=== PATIENT | female | born 1925 | race Caucasian/White ===

== ENCOUNTER 2016-11-23 10:25 | Emergency (ER) | payer MEDICARE, BC ==
--- NOTE | 2016-11-23 12:32 | UC ---
Skin Complaint HPI - HPI Summary HPI Summary: had a skin scraping last week at Dr. Belle office---Increase pain swelling redness and tenderness in LLE with a wound that has purulent drainage. Patient states it is very tender as well is tender above erythema--- also concerned about urinary urgency and she has chronic UTI'S - History of Current Complaint Chief Complaint: UCSkin Time Seen by Provider: 11/23/16 12:17 Stated Complaint: SKIN COMPLAINT Hx Obtained From: Patient ?: No Onset/Duration: Sudden Onset, Lasting Days - 7, Worse Since - pst 3 days Skin Exposure Onset/Duration: Weeks Ago - 1 Timing: Constant Onset Severity: Mild Current Severity: Moderate Pain Intensity: 6 Pain Scale Used: 0-10 Numeric Character: Swelling, Pain, Redness Aggravating: Touch Alleviating: Nothing Associated Signs & Symptoms: Positive: Drainage, Tenderness Related History: Trauma - skin scraping for cancer - Allergy/Home Medications Allergies/Adverse Reactions: Allergies Allergy/AdvReac Type Severity Reaction Status Date / Time Penicillins Allergy Unknown Verified 11/23/16 12:02 Reaction Details Home Medications: Home Medications Metoprolol Tartrate TAB* [Lopressor TAB*] 25 mg PO DAILY 11/23/16 [History Confirmed 11/23/16] Review of Systems Constitutional: Negative Skin: Other - 7 x 6 cm tender erythema around lower left leg with a 1.5 cm diameter center ulceration with purulent drainage Eyes: Negative ENT: Negative Respiratory: Negative Cardiovascular: Negative Gastrointestinal: Negative Genitourinary: Urgency Motor: Negative Neurovascular: Negative Musculoskeletal: Myalgia - lower left leg Neurological: Negative Psychological: Negative All Other Systems Reviewed And Are Negative: Yes PMH/Surg Hx/FS Hx/Imm Hx Previously Healthy: No Endocrine History Of: Reports: Thyroid Disease - hypo Denies: Diabetes Cardiovascular History Of: Reports: Cardiac Disorders - aortic valve calcification, Hypertension - Surgical History Surgical History: Yes Surgery Procedure, Year, and Place: t&a, appy, partial hysterectomy, bladder lift, heart cath - Family History Known Family History: Positive: None Family History: no reported cardio vascular issues in family lineage - Social History Occupation: Retired Lives: Alone Alcohol Use: None Substance Use Type: None Smoking Status (MU): Never Smoked Tobacco Physical Exam Triage Information Reviewed: Yes Appearance: Well-Appearing, Well-Nourished, Pain Distress - mild Vital Signs: Initial Vital Signs Temp 98.3 F 11/23/16 11:54 Pulse 65 11/23/16 11:54 Resp 16 11/23/16 11:54 BP 109/60 11/23/16 11:54 Pulse Ox 100 11/23/16 11:54 Vital Signs Reviewed: Yes Eye Exam: Normal Eyes: Positive: Conjunctiva Clear ENT Exam: Normal ENT: Positive: Normal ENT inspection, Hearing grossly normal. Negative: Nasal congestion, Nasal drainage, Trismus, Muffled/hoarse voice Dental Exam: Normal Neck exam: Normal Neck: Positive: Supple, Nontender Respiratory Exam: Normal Respiratory: Positive: Chest non-tender, No respiratory distress, No accessory muscle use Cardiovascular Exam: Normal Cardiovascular: Positive: RRR, Pulses Normal, Brisk Capillary Refill Abdominal Exam: Normal Abdomen Description: Positive: Nontender, No Organomegaly, Soft Bowel Sounds: Positive: Present Musculoskeletal Exam: Normal Musculoskeletal: Positive: Strength Intact, ROM Intact, Edema @ - left lower leg Neurological Exam: Normal Neurological: Positive: Alert, Muscle Tone Normal Psychological Exam: Normal Skin: Positive: Other - cellulitis ulceration as described Diagnostics - Laboratory Diagnostic Studies Completed/Ordered: us (-) Re-Evaluation - Re-Evaluation First Eval Change: Improved - Mepilex Dressing applied Course/Dx - Course Course Of Treatment: elevate legs, warm compress, bactrim bid for 10 days--- follow with Dr. Leon or return here in 3 days for dressing change-to emergency department should symptoms worsen - Differential Diagnoses - Skin Complaint Differential Diagnoses: Cellulitis, Impetigo, Local Allergic Reaction - Diagnoses Provider Diagnoses: Cellulitis with skin ulceration left lower leg Discharge - Discharge Plan Condition: Stable Disposition: HOME Prescriptions: Sulfamethox/Trimethoprim SUSP* [Bactrim Susp*] 20 ml PO BID #400 ml Patient Education Materials: Cellulitis (ED), Heat Pack Application (ED) Referrals: Hina Leon [Medical Doctor] - 3 Days Michelle Valverde PA [Primary Care Provider] -
[2016-11-23] MEDS ORDERED: Sulfamethox/Trimethoprim SUSP* 20 ML UDC PO ONE (12:39)
[2016-11-23 13:55] VITALS: BP 125/62
--- NOTE | 2016-11-23 14:42 | RAD ---
INDICATION: LEFT lower extremity draining wound post skin excisional biopsy. Assess for DVT. COMPARISON: No relevant prior exams available on the [facility] for comparison. TECHNIQUE: Sarmiento scale, color Doppler, and spectral analysis of the deep veins of the LEFT lower extremity. Vessel compression, phasicity, and augmentation assessed. REPORT: The LEFT common femoral, great saphenous, profunda femoral, femoral, popliteal, poorly visualized peroneal, and posterior tibial veins are grossly patent. Patency of the RIGHT common femoral vein documented. IMPRESSION: No evidence for LEFT lower extremity deep venous thrombosis.
== END 2016-11-23 14:52 | disposition home or self-care (01) ==
LOC: UCCORT 10:25
DX: L03.116 Cellulitis of left lower limb (principal); L97.929 Non-pressure chronic ulcer of unspecified part of left lower leg with unspecified severity; R60.0 Localized edema; R39.15 Urgency of urination; Z87.440 Personal history of urinary (tract) infections; E03.9 Hypothyroidism, unspecified; I35.8 Other nonrheumatic aortic valve disorders; I10 Essential (primary) hypertension; Z90.711 Acquired absence of uterus with remaining cervical stump; Z88.0 Allergy status to penicillin
CPT/HCPCS: 81003; 87070; 87077; 87086; 87186; 87205; 87640; 87641; 99202; A9270-GY; G0463

== ENCOUNTER 2016-11-26 12:14 | Emergency (ER) | payer MEDICARE, BC ==
[2016-11-26 12:31] VITALS: BP 111/52
--- NOTE | 2016-11-26 13:16 | UC ---
Lower Extremity/Ankle HPI - HPI Summary HPI Summary: left lower leg wound x 2 weeks had scraping done by the political scientist 2 weeks ago, the area became infected , pt. was seen at the [facility] on 11/23/16 , was placed on Bactrim ds, wound culture + for MRSA , pt. came for recheck of the wound today , no improvement of the wound, cont. to have redness, swelling, very tender no fever, no chills - History of Current Complaint Chief Complaint: UCSkin Stated Complaint: RE CK LEG WOUND Time Seen by Provider: 11/26/16 12:19 Hx Obtained From: Patient Onset/Duration: Gradual Onset, Lasting Weeks - 2, Still Present, Worse Since - past one week Severity Initially: Moderate Severity Currently: Severe Aggravating Factor(s): Standing, Ambulation Alleviating Factor(s): Nothing Able to Bear Weight: Yes - Allergies/Home Medications Allergies/Adverse Reactions: Allergies Allergy/AdvReac Type Severity Reaction Status Date / Time Peanut Oil Allergy Unknown Verified 11/26/16 12:22 Reaction Details Penicillins Allergy Unknown Verified 11/26/16 12:22 Reaction Details PMH/Surg Hx/FS Hx/Imm Hx Endocrine History Of: Reports: Thyroid Disease Denies: Diabetes Cardiovascular History Of: Reports: Cardiac Disorders - irregular heartbeat Denies: Hypertension - Surgical History Surgical History: Yes Surgery Procedure, Year, and Place: t&a, appy, partial hysterectomy, bladder lift, heart cath - Family History Known Family History: Positive: None Negative: Diabetes Family History: no reported cardio vascular issues in family lineage - Social History Alcohol Use: None Substance Use Type: None Smoking Status (MU): Never Smoked Tobacco Review of Systems Constitutional: Negative Skin: Other - wound left lower leg Eyes: Negative ENT: Negative Respiratory: Negative Cardiovascular: Negative All Other Systems Reviewed And Are Negative: Yes Physical Exam Triage Information Reviewed: Yes Appearance: Well-Appearing, No Pain Distress, Well-Nourished Vital Signs: Initial Vital Signs Temp 98.5 F 11/26/16 12:25 Pulse 77 11/26/16 12:25 Resp 16 11/26/16 12:25 BP 111/52 11/26/16 12:25 Pulse Ox 100 11/26/16 12:25 Vital Signs Reviewed: Yes Eyes: Positive: Conjunctiva Clear ENT: Positive: Normal ENT inspection, Hearing grossly normal, Pharynx normal Neck exam: Normal Neck: Positive: Supple, Nontender, No Lymphadenopathy Respiratory: Positive: Chest non-tender, Lungs clear, Normal breath sounds Cardiovascular: Positive: RRR, No Murmur, Pulses Normal Skin: Positive: Other - left lower leg : + ulceration , + granulation tissu, foul smelling, + deep erythema extend to the left heep , very tender Lower Extremity Course/Dx - Course Course Of Treatment: left lower leg cellulitis , + MRSA , not improving with Bactrim over the past 3 days , concern about osteo. will have the pt. go to [facility] for eval and tx. spoke to Mrs. Nunez GARBAGE PERSON about the transfer - Differential Dx/Diagnosis Provider Diagnoses: cellulitis left lower leg Discharge - Discharge Plan Condition: Stable Disposition: TRANS HIGHER LVL OF CARE FAC Referrals: Michelle Valverde PA [Primary Care Provider] -
--- NOTE | 2016-11-26 13:20 | RAD ---
INDICATION: Left leg wound COMPARISON: None. TECHNIQUE: 3 views of the left ankle were obtained. FINDINGS: The well corticated bones exhibit normal alignment. Joint spaces appear maintained. No fracture is seen. There are no subcutaneous foreign bodies identified. IMPRESSION: NO RADIOGRAPHICALLY APPARENT ABNORMALITY OF THE LEFT LOWER LEG OR ANKLE. If the patient's symptoms persist, follow-up imaging is recommended.
== END 2016-11-26 13:18 | disposition left against medical advice (07) ==
LOC: UCCORT 12:14
DX: L03.116 Cellulitis of left lower limb (principal); E07.9 Disorder of thyroid, unspecified; I49.9 Cardiac arrhythmia, unspecified; Z86.14 Personal history of Methicillin resistant Staphylococcus aureus infection; Z88.0 Allergy status to penicillin
CPT/HCPCS: 99212; G0463